=== PATIENT | male | born 1985 | race Caucasian/White ===

== ENCOUNTER 2019-04-06 09:01 | Day surgery (SDC) | payer BC ==
[~2019-04-06 09:01] MED LIST: BACITRACIN 50,000 UNIT VIAL IR ONE; BUPIV. HCL 0.5% (5MG/ML)/EPI. (1:200,000) PF 30 ML VIAL IJ ONE; DEXAMETHASONE SODIUM PHOSPHATE 10 MG/ML VIAL ONE; GELATIN SPONGE,ABSORB/PORCINE (SIZE 100) 1 EACH SPONGE TP ONE; LACTATED RINGERS 1,000 ML IV.SOLN IV ONE; LIDOCAINE HCL 2% PF 100MG/5ML VIAL IJ ONE; MIDAZOLAM HCL 2 MG/2 ML VIAL ONE; ONDANSETRON HCL/PF 4 MG/ 2ML VIAL ONE; PROPOFOL 200 MG/20 ML VIAL IV ONE; ROCURONIUM BROMIDE 10 MG/ML 5ML VIAL ONE; SUGAMMADEX SODIUM 200 MG/2 ML VIAL IV ONE; THROMBIN (RECOMBINANT) 20,000 UNIT VIAL TP ONE; ceFAZolin SODIUM 1 GM VIAL ONE; fentaNYL CITRATE/PF 100 MCG/2 ML INJ. ONE
[2019-04-06] MEDS ORDERED: MEPERIDINE (NF) 100 MG/ML INJ ONE (15:11)
--- NOTE | 2019-04-11 10:08 | Operative Note ---
PREOPERATIVE DIAGNOSIS: 1. L4-5 degenerative disc disease. 2. L5-S1 degenerative disc disease. 3. L4-5 spinal stenosis. 4. L5-S1 spinal stenosis. 5. Foraminal stenosis, L4-5. 6. Foraminal stenosis, L5-S1. 7. Herniated nucleus pulposus, left L5-S1. 8. Radiculopathy, L4, L5 and S1. POSTOPERATIVE DIAGNOSIS: 1. L4-5 degenerative disc disease. 2. L5-S1 degenerative disc disease. 3. L4-5 spinal stenosis. 4. L5-S1 spinal stenosis. 5. Foraminal stenosis, L4-5. 6. Foraminal stenosis, L5-S1. 7. Herniated nucleus pulposus, left L5-S1. 8. Radiculopathy, L4, L5 and S1. PROCEDURES PERFORMED: 1. Laminectomy with partial facetectomy and neural foraminotomy, L4. 2. Laminectomy with partial facetectomy and neural foraminotomy, L5. 3. Laminectomy with partial facetectomy and neural foraminotomy, S1. 4. Left L5-S1 discectomy including excision of intraforaminal free fragment requiring extended laminectomy to the left. 5. Fluoroscopy. SURGEON: Marcus Montenegro M.D. SALESPERSON FLOWERS SURGEON: Primo Anderson Jr., M.D. ANESTHESIA: General via endotracheal tube. ESTIMATED BLOOD LOSS: 50 mL. INDICATIONS: The patient has known spinal stenosis at the L4-5 and L5-S1 levels. He has both central and neural foraminal components of spinal stenosis. The patient has neurogenic claudication and radiculopathy. In addition, the patient has evidence of left L5-S1 herniated nucleus pulposus with a component of left intraforaminal disc herniation. The patient has proved refractory to all forms of multimodality conservative management. The patient is a large gentleman weighing 278 pounds and he understands the risks of surgery. The patient has requested that we proceed with operative intervention, having proved completely refractory to multimodality conservative management. DESCRIPTION OF PROCEDURE: The patient was brought to the operating room and administered general anesthesia via endotracheal tube. The lower extremities were treated with KAMILA hose and intermittent compression stockings. The patient was positioned on the radiolucent [place] table in the prone position with all bony prominences padded appropriately. Care was taken to ensure the shoulders were not abducted more than 90 degrees, the elbows flexed more than 90 degrees. There was no undue pressure on the cubital or carpal canals. The area of the anterior superior iliac spine was well padded to protect the lateral femoral cutaneous nerve. The hips and knees were padded and the dorsum of the feet were on pillows. In this low back neutral position, the low back was defatted with alcohol and then fluoroscopy was brought into the field and the pedicles of L4, L5 and S1 were marked on the patients back for surgical reference for fashioning of incision. The patient was then sterilely prepped and draped, the skin infiltrated with 0.5% Marcaine and 1:200,000 epinephrine. Sharp dissection was continued down through the skin and the subcutaneous tissues to the level of the deep fascia. At the level of the deep fascia, the tips of the spinous processes were subperiosteally exposed using a combination of Diaz and cautery dissection. We then exposed the lamina, maintaining the facet capsules at all times, exposing the entire lamina of L4, L5 and S1. We then began laminectomies with decompression of the central canal and the lamina of L4, L5 and S1 was thinned to its anterior cortex with a high-speed drill, and then resected with a 3 mm Kerrison until we had wide decompressive laminectomy. The laminectomy was carried cephalad until we were above the attachment of the ligamentum flavum on the L4 lamina, and then we began resecting the ligament until we reached the L5 lamina. The L5 lamina was then resected until we reached the ligament at L5-S1. The ligament was resected until we reached the cephalad portion of S1. Portions of the cephalad of S1 were resected to allow decompression of the nerve roots to the level of the pedicle. We then continued the dissection lateralward until we completely decompressed the lateral recesses, and it seemed at L4-5 that this was all that was necessary to obtain good relief of the pressure on both the spinal sac, the lateral recess and the neural foramen. This did include partial facetectomies and neural foraminotomies. These neural foraminotomies were performed by undercutting the neural foramen with a 45- degree angled Kerrison until a Ellen dental elevator could be passed adjacent to the nerve root without any encumbrance whatsoever. We also had a ball and wire probe that could be passed and, again, indicated no extrinsic pressure on the nerve roots and the neural foramen whatsoever. When the central and lateral recess neural foraminal decompression was complete at L4, L5 and S1, we turned our attention to the left L5-S1 where we felt we were going to need to violate the disc, but instead we found extruded disc around the nerve root and extending into the neural foramen. This was removed with a pituitary rongeur and at times using an [place] curette followed by a ball and wire and a neural probe. With the nerve hook and a variety of curettes, we were able to completely decompress the neural foramen, remove the intraforaminal disc and the extruded fragments from left L5-S1 until the nerve roots egressed, both L5 and S1 without any encumbrance to probing whatsoever. When complete, we had a wide decompressive laminectomy at multiple levels, L4, L5 and S1, and we had complete decompression and removal of extruded disc at L5-S1 on the left. We copiously irrigated with a liter of antibiotic-containing solution, we obtained meticulous hemostasis, closed the deep fascial layer with 0 Ethibond [id number] interrupted fashion, deep subcu with 0 Vicryl, superficial subcu with 2-0 Vicryl, skin with subcuticular 3-0, dressed it with Benzoin, Steri-Strips, Xeroform, sterile dressings, sponges and a Bioclusive. The patient tolerated the procedure well. He was physiologically stable throughout. Final blood loss was about 50 mL. There was no specimen. He is being transported to the recovery room for close serial neurovascular observation, continued prophylactic antibiotic and serial neurovascular exams with plans to discharge to the floor when stable with possible discharge this evening, if the patient is able to ambulate with first officer and flight instructor with PT, and is on good oral pain control with the Percocet provided. MARCUS MONTENEGRO M.D. MERLIN/ezra (Please copy [facility] provider when applicable) Job #[id number] DEVI
== END 2019-04-06 16:21 | disposition home or self-care (01) ==
LOC: OPSURG 09:01
DX: M48.07 Spinal stenosis, lumbosacral region (principal); M51.16 Intervertebral disc disorders with radiculopathy, lumbar region; M51.17 Intervertebral disc disorders with radiculopathy, lumbosacral region
CPT/HCPCS: 63047; 63048; J2175; J0690; J2001; J2250; J2405; J2704; J3010; J3490; J7120